=== PATIENT | male | born 1995 | race African-American/Black ===

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

== ENCOUNTER 2017-03-19 17:43 | Emergency (ER) | payer MEDICAID ==
[~2017-03-19 17:43] MED LIST changes: +KEPP1TAB PO; -KEPP500T6 PO
[2017-03-19 18:12] LABS: MEAN CORPUSCULAR HEMOGLOBIN 26.7 pg (27.0-33.0); MEAN CORPUSCULAR HGB CONC 30.8 g/dl (32.0-36.5); MEAN CORPUSCULAR VOLUME 86.7 fl (80.0-96.0); RED CELL DISTRIBUTION WIDTH 17.2 % (11.5-14.5); WHITE BLOOD COUNT 19.3 K/mm3 (4.0-10.0)
[2017-03-19 18:16] LABS: ABG BASE EXCESS -26.5 (-2.0-2.0); ABG HCO3 6.7 MEQ/L (22.0-26.0); ABG PARTIAL PRESSURE O2 355.5 mmHg (75.0-100.0); ABG STANDARD HCO3 7.1 MEQ/L (22.0-26.0); ABG TOTAL CO2 7.8 MEQ/L (22.0-29.0); ABG pH (ARTERIAL) 6.874 UNITS (7.350-7.450)
[2017-03-19 18:43] LABS: METHADONE URINE NEGATIVE (NEGATIVE)
[2017-03-19 18:43] LABS: ALBUMIN 4.1 GM/DL (3.2-5.2); ALBUMIN/GLOBULIN RATIO 1.03 (1.00-1.93); ALKALINE PHOSPHATASE 80 U/L (45-117); ALT/SGPT 59 U/L (12-78); ANION GAP 33 MEQ/L (8-16); AST/SGOT 29 U/L (15-37); BILIRUBIN,TOTAL 0.4 MG/DL (0.2-1.0); BLOOD UREA NITROGEN 7 MG/DL (7-18); CALCIUM LEVEL 10.6 MG/DL (8.5-10.1); CARBON DIOXIDE LEVEL 6 MEQ/L (21-32); CHLORIDE LEVEL 99 MEQ/L (98-107); CREATININE FOR GFR 1.64 MG/DL (0.70-1.30); GLUCOSE, FASTING 232 MG/DL (70-105); POTASSIUM SERUM 4.4 MEQ/L (3.5-5.1); SODIUM LEVEL 138 MEQ/L (136-145); TOTAL PROTEIN 8.1 GM/DL (6.4-8.2)
--- NOTE | 2017-03-19 19:00 | REPUSA ---
CT of the head Clinical history: altered mental status. Comparison: 10/22/2016. Technique: Multiple axial CT images were obtained through the head without administration of contrast . Findings: The ventricles and sulci are symmetric bilaterally. There is no evidence of acute hemorrhag e or infarct. There is no midline shift, mass effect, or extra-axial fluid collection. The osseous st ructures are unremarkable. The visualized paranasal sinuses and mastoid air cells are clear. Impression: Negative study.
[2017-03-19] MEDS ORDERED: SODIUM CHLORIDE 0.9% 1000 ML IV ONE (19:15)
[2017-03-19] MEDS ORDERED: SODIUM BICARBONATE 8.4% INJ 50 ML SYRINGE IV ONE (19:30)
[2017-03-19] MEDS ORDERED: FOMEPIZOLE IV ONE (20:15)
[2017-03-19] MEDS ORDERED: NS IV ONE (20:15)
[2017-03-19 20:55] LABS: CALCIUM LEVEL 8.9 MG/DL (8.5-10.1); PHOSPHORUS LEVEL 2.2 MG/DL (2.5-4.9)
[2017-03-19] MEDS ORDERED: POTASSIUM PHOSPHATE INJ 15 MMOL in D5W 250 ML IV ONE (21:45)
[2017-03-19 22:09] LABS: ABG BASE EXCESS 1.3 (-2.0-2.0); ABG PARTIAL PRESSURE CO2 41.7 mmHg (35.0-45.0); ABG PARTIAL PRESSURE O2 46.1 mmHg (75.0-100.0); ABG STANDARD HCO3 25.1 MEQ/L (22.0-26.0); ABG TOTAL CO2 27.3 MEQ/L (22.0-29.0); ABG pH (ARTERIAL) 7.413 UNITS (7.350-7.450)
[2017-03-19] MEDS ORDERED: levETIRAcetam 250MG TABLET (KEPPRA) PO ONE (22:45)
[2017-03-19 23:17] LABS: ANION GAP 9 MEQ/L (8-16); BLOOD UREA NITROGEN 6 MG/DL (7-18); CALCIUM LEVEL 8.5 MG/DL (8.5-10.1); CARBON DIOXIDE LEVEL 28 MEQ/L (21-32); CHLORIDE LEVEL 103 MEQ/L (98-107); CREATININE FOR GFR 0.87 MG/DL (0.70-1.30); GLUCOSE, FASTING 103 MG/DL (70-105); PHOSPHORUS LEVEL 2.8 MG/DL (2.5-4.9); POTASSIUM SERUM 3.5 MEQ/L (3.5-5.1); SODIUM LEVEL 140 MEQ/L (136-145)
[2017-03-19] MEDS ORDERED: LEVE500UDC PO (23:54)
[2017-03-20 00:15] VITALS: BP 118/72
--- NOTE | 2017-03-20 07:27 | ECGEPIP ---
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
--- NOTE | 2017-03-20 07:28 | ECGEPIP ---
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
--- NOTE | 2017-03-20 08:23 | REP ---
AP PORTABLE SEATED CHEST: 03/19/2017 COMPARISON: PA chest 08/27/2016, 03/27/2016. CLINICAL HISTORY: Altered mental status. FINDINGS: Lungs are well inflated without infiltrate, effusion, atelectasis or mass. Heart, mediastinal and hilar contours are normal. Airway intact. Bones unremarkable. No free air. IMPRESSION: 1. Negative portable chest. Signed by Ba Jain MD 03/20/2017 10:38 A
== END 2017-03-20 00:26 | disposition left against medical advice (07) ==
LOC: EDBD 17:43 → M ED 18:42
DX: R41.82 Altered mental status, unspecified (principal); D72.829 Elevated white blood cell count, unspecified; F19.10 Other psychoactive substance abuse, uncomplicated; R00.1 Bradycardia, unspecified; R25.8 Other abnormal involuntary movements; R11.10 Vomiting, unspecified; F17.200 Nicotine dependence, unspecified, uncomplicated; Z79.899 Other long term (current) drug therapy
CPT/HCPCS: 36415; 36600; 70450; 71010; 80053; 80306; 81001; 82010; 82803; 83605; 83930; 83935; 84100; 85027; 93005; 96374; 99285; G0480; J1451

== ENCOUNTER 2017-04-18 08:53 | Emergency (ER) | payer MEDICAID ==
[~2017-04-18 08:53] MED LIST changes: +LEVE500UDC PO
[2017-04-18] MEDS ORDERED: NS 1,000 ML IV ONE (09:15)
--- NOTE | 2017-04-18 09:38 | REP ---
CT of the brain without IV contrast, emergency room request: There is significant motion artifact resulting in significant image degradation. The study is uninterpretable. Signed by Owen Lang MD 04/18/2017 09:29 A
[2017-04-18 09:42] LABS: ABG BASE EXCESS -0.9 (-2.0-2.0); ABG HCO3 22.7 MEQ/L (22.0-26.0); ABG PARTIAL PRESSURE CO2 34.7 mmHg (35.0-45.0); ABG PARTIAL PRESSURE O2 112.6 mmHg (75.0-100.0); ABG STANDARD HCO3 23.8 MEQ/L (22.0-26.0); ABG TOTAL CO2 23.7 MEQ/L (22.0-29.0); ABG pH (ARTERIAL) 7.433 UNITS (7.350-7.450)
[2017-04-18 09:43] LABS: VENOUS BASE EXCESS -2.3 (-2.0-2.0); VENOUS O2 SATURATION 53.9 % (60.0-80.0); VENOUS PARTIAL PRESSURE CO2 45.6 mmHg (38.0-50.0); VENOUS PARTIAL PRESSURE O2 30.8 mmHg (30.0-50.0); VENOUS STANDARD HCO3 21.4 MEQ/L; VENOUS TOTAL CO2 25.2 MEQ/L (24.0-28.0)
[2017-04-18 09:50] LABS: BASO % 0.4 % (0.0-1.0); EOS # 0.1 K/mm3 (0.0-0.50); EOS % 1.2 % (0.0-3.0); LARGE UNSTAINED CELL # 0.1 K/mm3 (0.0-0.4); LARGE UNSTAINED CELL % 1.6 % (0.0-4.0); LYMPH # 1.5 K/mm3 (1.5-6.5); LYMPH % 16.9 % (24.0-44.0); MEAN CORPUSCULAR HEMOGLOBIN 27.5 pg (27.0-33.0); MEAN CORPUSCULAR HGB CONC 33.9 g/dl (32.0-36.5); MONO # 0.3 K/mm3 (0.0-0.8); MONO % 3.8 % (0.0-5.0); NEUTROPHILS # 6.7 K/mm3 (1.8-7.7); PLATELET COUNT, AUTOMATED 343 k/mm3 (150-450); RED CELL DISTRIBUTION WIDTH 16.2 % (11.5-14.5); WHITE BLOOD COUNT 8.8 K/mm3 (4.0-10.0)
[2017-04-18 10:11] LABS: METHADONE URINE NEGATIVE (NEGATIVE)
[2017-04-18 10:17] LABS: ALBUMIN 3.8 GM/DL (3.2-5.2); ALBUMIN/GLOBULIN RATIO 1.12 (1.00-1.93); ALKALINE PHOSPHATASE 58 U/L (45-117); ALT/SGPT 57 U/L (12-78); ANION GAP 11 MEQ/L (8-16); AST/SGOT 39 U/L (15-37); BILIRUBIN,DIRECT 0.1 MG/DL (0.0-0.2); BILIRUBIN,TOTAL 0.3 MG/DL (0.2-1.0); BLOOD UREA NITROGEN 8 MG/DL (7-18); CALCIUM LEVEL 10.2 MG/DL (8.5-10.1); CARBON DIOXIDE LEVEL 26 MEQ/L (21-32); CHLORIDE LEVEL 98 MEQ/L (98-107); CREATININE FOR GFR 1.27 MG/DL (0.70-1.30); GLUCOSE, FASTING 114 MG/DL (70-105); POTASSIUM SERUM 4.6 MEQ/L (3.5-5.1); SODIUM LEVEL 135 MEQ/L (136-145); TOTAL PROTEIN 7.2 GM/DL (6.4-8.2)
[2017-04-18] MEDS ORDERED: LORazepam 2 MG/ML VIAL (J2060) As Ordered ONE (11:22)
[2017-04-18] MEDS ORDERED: LORazepam 2 MG/ML VIAL (J2060) IV STA (11:23)
[2017-04-18] MEDS ORDERED: VALPROATE SOD INJ 500 MG in D5W 50 ML IV ONE (11:30)
[2017-04-18] MEDS ORDERED: ACETAMINOPHEN TAB 650MG DOSE (2X325MG) PO ONE (13:00)
[2017-04-18] MEDS ORDERED: DEPA1TAB3 PO ×2 (15:48→19:28)
[2017-04-18 18:27] VITALS: BP 128/72
[2017-04-18] MEDS ORDERED: AMMONIA AROMATIC INHALANT (FLOOR STOCK) As Ordered ONE (19:51)
--- NOTE | 2017-04-19 08:54 | ECGEPIP ---
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
[2017-04-23 00:07] LABS: MDPV Negative (NEGATIVE); MEPHEDRONE Negative (NEGATIVE)
== END 2017-04-18 19:58 | disposition home or self-care (01) ==
LOC: M ED 08:53
DX: R56.9 Unspecified convulsions (principal); F15.10 Other stimulant abuse, uncomplicated; R00.1 Bradycardia, unspecified; B19.20 Unspecified viral hepatitis C without hepatic coma; Z79.899 Other long term (current) drug therapy
CPT/HCPCS: 36600; 70450; 80048; 80076; 80164; 80307; 82550; 82803; 83930; 84443; 85025; 93005; 93041; 96361; 96374; 96375; 99285; G0480; J2060

== ENCOUNTER 2017-05-21 05:51 | Emergency (ER) | payer MEDICAID, OTHER ==
[2017-05-21] MEDS ORDERED: levETIRAcetam INJection 1,500 MG in D5W 100 ML IV ONE (06:15)
[2017-05-21 06:55] LABS: ANION GAP 15 MEQ/L (8-16); BLOOD UREA NITROGEN 12 MG/DL (7-18); CALCIUM LEVEL 9.2 MG/DL (8.5-10.1); CARBON DIOXIDE LEVEL 19 MEQ/L (21-32); CHLORIDE LEVEL 106 MEQ/L (98-107); CREATININE FOR GFR 1.21 MG/DL (0.70-1.30); GLUCOSE, FASTING 94 MG/DL (70-105); POTASSIUM SERUM 4.7 MEQ/L (3.5-5.1); SODIUM LEVEL 140 MEQ/L (136-145)
[2017-05-21] MEDS ORDERED: DIVALPROEX 500 MG TAB PO ONE (07:15)
[2017-05-21] MEDS ORDERED: ACETAMINOPHEN TAB 650MG DOSE (2X325MG) PO ONE (07:30)
[2017-05-21] MEDS ORDERED: NS 1,000 ML IV ONE ×2 (07:30)
[2017-05-21 07:52] LABS: BASO # 0.1 K/mm3 (0.0-0.2); BASO % 0.9 % (0.0-1.0); EOS # 0.2 K/mm3 (0.0-0.50); EOS % 2.1 % (0.0-3.0); LARGE UNSTAINED CELL # 0.4 K/mm3 (0.0-0.4); LARGE UNSTAINED CELL % 4.8 % (0.0-4.0); LYMPH # 5.3 K/mm3 (1.5-6.5); LYMPH % 52.8 % (24.0-44.0); MEAN CORPUSCULAR VOLUME 84.9 fl (80.0-96.0); MONO # 0.8 K/mm3 (0.0-0.8); MONO % 8.4 % (0.0-5.0); NEUTROPHILS # 2.8 K/mm3 (1.8-7.7); NEUTROPHILS % 31.1 % (36.0-66.0); PLATELET COUNT, AUTOMATED 232 k/mm3 (150-450); RED CELL DISTRIBUTION WIDTH 16.2 % (11.5-14.5); WHITE BLOOD COUNT 9.1 K/mm3 (4.0-10.0)
[2017-05-21 10:24] LABS: BASO % 0.6 % (0.0-1.0); EOS # 0.1 K/mm3 (0.0-0.50); EOS % 1.3 % (0.0-3.0); LARGE UNSTAINED CELL # 0.2 K/mm3 (0.0-0.4); LARGE UNSTAINED CELL % 2.6 % (0.0-4.0); LYMPH % 22.5 % (24.0-44.0); MEAN CORPUSCULAR HEMOGLOBIN 27.8 pg (27.0-33.0); MEAN CORPUSCULAR HGB CONC 33.6 g/dl (32.0-36.5); MEAN CORPUSCULAR VOLUME 82.5 fl (80.0-96.0); MONO # 0.4 K/mm3 (0.0-0.8); MONO % 5.1 % (0.0-5.0); NEUTROPHILS # 5.5 K/mm3 (1.8-7.7); NEUTROPHILS % 67.9 % (36.0-66.0); PLATELET COUNT, AUTOMATED 209 k/mm3 (150-450); RED CELL DISTRIBUTION WIDTH 16.4 % (11.5-14.5); WHITE BLOOD COUNT 8.1 K/mm3 (4.0-10.0)
[2017-05-21 10:38] VITALS: BP 111/55
[2017-05-21] MEDS ORDERED: DEPA1TAB3 PO (10:45)
== END 2017-05-21 10:51 | disposition home or self-care (01) ==
LOC: EDBD 05:51 → M ED 05:51
DX: G40.909 Epilepsy, unspecified, not intractable, without status epilepticus (principal); Z91.14 Patient's other noncompliance with medication regimen; F17.200 Nicotine dependence, unspecified, uncomplicated; Z79.899 Other long term (current) drug therapy
CPT/HCPCS: 36415; 80048; 80164; 83605; 85025; 96361; 96374; 99285; J1953

== ENCOUNTER 2017-06-18 20:46 | Emergency (ER) | payer MEDICAID, OTHER ==
[~2017-06-18] VITALS: Ht 182.9 cm; Wt 68.2 kg
[2017-06-18] MEDS ORDERED: VALPROATE SOD INJ 1,000 MG in D5W 50 ML IV ONE (21:15)
[2017-06-18] MEDS ORDERED: NS 1,000 ML IV ONE (21:15)
[2017-06-18] MEDS ORDERED: levETIRAcetam INJection 500 MG in D5W MINI-BAG PLUS 100 ML IV ONE (21:15)
[2017-06-18 21:56] LABS: BASO % 0.4 % (0.0-1.0); EOS # 0.1 K/mm3 (0.0-0.50); EOS % 1.3 % (0.0-3.0); LARGE UNSTAINED CELL # 0.3 K/mm3 (0.0-0.4); LARGE UNSTAINED CELL % 3.2 % (0.0-4.0); LYMPH # 3.4 K/mm3 (1.5-6.5); MEAN CORPUSCULAR HEMOGLOBIN 29.1 pg (27.0-33.0); MEAN CORPUSCULAR HGB CONC 36.4 g/dl (32.0-36.5); MEAN CORPUSCULAR VOLUME 80.1 fl (80.0-96.0); MONO # 0.5 K/mm3 (0.0-0.8); MONO % 6.2 % (0.0-5.0); NEUTROPHILS # 4.3 K/mm3 (1.8-7.7); NEUTROPHILS % 49.9 % (36.0-66.0); PLATELET COUNT, AUTOMATED 338 k/mm3 (150-450); RED CELL DISTRIBUTION WIDTH 15.6 % (11.5-14.5); WHITE BLOOD COUNT 8.6 K/mm3 (4.0-10.0)
[2017-06-18 22:12] LABS: METHADONE URINE NEGATIVE (NEGATIVE)
[2017-06-18 22:23] LABS: ALBUMIN 4.3 GM/DL (3.2-5.2); ALBUMIN/GLOBULIN RATIO 1.26 (1.00-1.93); ALKALINE PHOSPHATASE 61 U/L (45-117); ALT/SGPT 65 U/L (12-78); ANION GAP 8 MEQ/L (8-16); AST/SGOT 37 U/L (15-37); BILIRUBIN,DIRECT 0.3 MG/DL (0.0-0.2); BILIRUBIN,TOTAL 0.8 MG/DL (0.2-1.0); BLOOD UREA NITROGEN 11 MG/DL (7-18); CALCIUM LEVEL 9.7 MG/DL (8.5-10.1); CARBON DIOXIDE LEVEL 26 MEQ/L (21-32); CHLORIDE LEVEL 105 MEQ/L (98-107); CREATININE FOR GFR 1.38 MG/DL (0.70-1.30); GLUCOSE, FASTING 83 MG/DL (70-105); SODIUM LEVEL 139 MEQ/L (136-145); TOTAL PROTEIN 7.7 GM/DL (6.4-8.2)
[2017-06-18] MEDS ORDERED: ACETAMINOPHEN 325 MG TAB PO ONE (22:30)
[2017-06-18 22:31] VITALS: BP 150/90
[2017-06-18] MEDS ORDERED: DEPA1TAB3 PO (22:40)
[2017-06-19] MEDS ORDERED: DEPA1TAB3 PO (16:05)
== END 2017-06-18 22:53 | disposition home or self-care (01) ==
LOC: M ED 20:46 → EDBD 20:46 → M ED 22:53
DX: R56.9 Unspecified convulsions (principal); Z86.69 Personal history of other diseases of the nervous system and sense organs; B19.20 Unspecified viral hepatitis C without hepatic coma; F17.210 Nicotine dependence, cigarettes, uncomplicated; Z79.899 Other long term (current) drug therapy
CPT/HCPCS: 80048; 80076; 80164; 80307; 81001; 84443; 85025; 93041; 94760; 99285; G0480; J1953

== ENCOUNTER 2017-06-19 09:46 | Emergency (ER) | payer OTHER ==
[~2017-06-19] VITALS: Ht 185.4 cm; Wt 84.1 kg
[2017-06-19] MEDS ORDERED: NS 1,000 ML IV ONE ×3 (10:15→12:00)
[2017-06-19 10:50] LABS: BASO % 0.7 % (0.0-1.0); EOS # 0.1 K/mm3 (0.0-0.50); EOS % 1.7 % (0.0-3.0); LARGE UNSTAINED CELL # 0.2 K/mm3 (0.0-0.4); LYMPH # 2.7 K/mm3 (1.5-6.5); LYMPH % 49.5 % (24.0-44.0); MEAN CORPUSCULAR HGB CONC 36.1 g/dl (32.0-36.5); MEAN CORPUSCULAR VOLUME 80.5 fl (80.0-96.0); MONO # 0.4 K/mm3 (0.0-0.8); MONO % 7.1 % (0.0-5.0); NEUTROPHILS % 37.1 % (36.0-66.0); PLATELET COUNT, AUTOMATED 354 k/mm3 (150-450); RED CELL DISTRIBUTION WIDTH 15.8 % (11.5-14.5); WHITE BLOOD COUNT 5.5 K/mm3 (4.0-10.0)
[2017-06-19 11:14] LABS: METHADONE URINE NEGATIVE (NEGATIVE)
[2017-06-19 11:23] LABS: ALBUMIN/GLOBULIN RATIO 1.11 (1.00-1.93); ALKALINE PHOSPHATASE 54 U/L (45-117); ALT/SGPT 64 U/L (12-78); ANION GAP 9 MEQ/L (8-16); AST/SGOT 34 U/L (15-37); BILIRUBIN,DIRECT 0.4 MG/DL (0.0-0.2); BILIRUBIN,TOTAL 1.1 MG/DL (0.2-1.0); BLOOD UREA NITROGEN 8 MG/DL (7-18); CALCIUM LEVEL 8.8 MG/DL (8.5-10.1); CARBON DIOXIDE LEVEL 26 MEQ/L (21-32); CHLORIDE LEVEL 108 MEQ/L (98-107); CREATININE FOR GFR 1.25 MG/DL (0.70-1.30); GLUCOSE, FASTING 75 MG/DL (70-105); POTASSIUM SERUM 4.2 MEQ/L (3.5-5.1); SODIUM LEVEL 143 MEQ/L (136-145); TOTAL PROTEIN 7.6 GM/DL (6.4-8.2)
[2017-06-19 11:58] LABS: OSMOLALITY SERUM 294 MOSM/KG (275-295)
[2017-06-19] MEDS ORDERED: DEPA1TAB3 PO (16:05)
[2017-06-19 16:22] VITALS: BP 147/77
--- NOTE | 2017-06-20 06:14 | REP ---
CT BRAIN WITHOUT IV CONTRAST: CT brain is performed without IV contrast. Ventricles are normal in size and position with no midline shift or mass effect. Kapoor-white differentiation is well maintained. There is no acute hemorrhage or extra-axial fluid collection. Bone window examination is unremarkable. IMPRESSION: Negative noncontrast CT brain. Signed by Owen Kapoor MD 06/20/2017 05:22 P
--- NOTE | 2017-06-20 08:26 | ECGEPIP ---
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
== END 2017-06-19 16:42 | disposition home or self-care (01) ==
LOC: M ED 09:46
DX: R56.9 Unspecified convulsions (principal); Z86.69 Personal history of other diseases of the nervous system and sense organs; Z79.899 Other long term (current) drug therapy
CPT/HCPCS: 70450; 80048; 80076; 80164; 80307; 82140; 82550; 83605; 83930; 84443; 85025; 93005; 93041; 94760; 96360; 96361; 99285; G0480

== ENCOUNTER 2017-06-20 19:39 | Emergency (ER) | payer OTHER ==
[~2017-06-20] VITALS: Ht 185.4 cm; Wt 83.9 kg
[2017-06-20 21:14] VITALS: BP 130/60
[2017-06-20] MEDS ORDERED: ACETAMINOPHEN 325 MG TAB PO ONE (21:15)
== END 2017-06-20 21:23 | disposition home or self-care (01) ==
LOC: M ED 19:39
DX: R56.9 Unspecified convulsions (principal); Z86.69 Personal history of other diseases of the nervous system and sense organs; B19.20 Unspecified viral hepatitis C without hepatic coma; F99 Mental disorder, not otherwise specified; F17.210 Nicotine dependence, cigarettes, uncomplicated; Z79.899 Other long term (current) drug therapy

== ENCOUNTER 2017-11-19 10:50 | Emergency (ER) | payer BC, OTHER ==
[2017-11-19 11:33] LABS: BEDSIDE GLUCOSE 165 MG/DL (70-105)
[2017-11-19 11:35] LABS: VENOUS BASE EXCESS -19.9 (-2.0-2.0); VENOUS PARTIAL PRESSURE CO2 37.2 mmHg (38.0-50.0); VENOUS PARTIAL PRESSURE O2 138.4 mmHg (30.0-50.0); VENOUS PH 7.047 UNITS (7.330-7.430); VENOUS STANDARD HCO3 10.6 MEQ/L; VENOUS TOTAL CO2 11.1 MEQ/L (24.0-28.0)
[2017-11-19 11:42] LABS: HEMATOCRIT 45.3 % (42.0-52.0); MEAN CORPUSCULAR HEMOGLOBIN 29.4 pg (27.0-33.0); MEAN CORPUSCULAR HGB CONC 33.1 g/dl (32.0-36.5); MEAN CORPUSCULAR VOLUME 88.6 fl (80.0-96.0); PLATELET COUNT, AUTOMATED 280 10^3/uL (150-450); RED BLOOD COUNT 5.11 10^6/uL (4.30-6.10); RED CELL DISTRIBUTION WIDTH 13.4 % (11.5-14.5); WHITE BLOOD COUNT 16.5 10^3/uL (4.0-10.0)
[2017-11-19 12:07] LABS: AMPHETAMINES LEVEL URINE NEGATIVE (NEGATIVE); BARBITURATES URINE NEGATIVE (NEGATIVE); BENZODIAZEPINES URINE NEGATIVE (NEGATIVE); CANNABINOIDS URINE POSITIVE (NEGATIVE); COCAINE METABOLITE URINE NEGATIVE (NEGATIVE); METHADONE URINE NEGATIVE (NEGATIVE); OPIATES URINE NEGATIVE (NEGATIVE); PHENCYCLIDINE URINE NEGATIVE (NEGATIVE)
[2017-11-19 12:09] LABS: ADD MANUAL DIFFER YES; DIFF SLIDE NUMBER 125; POSITIVE DIFF POS FLAG; POSITIVE MORPH POS FLAG
[2017-11-19 12:12] LABS: ATYPICAL LYMPH 6 % (0-5); BANDS 1 % (< 11); EOSINOPHILS 1 % (0-5); LYMPHOCYTES 36 % (16-52); MONOCYTES 10 % (0-8); NEUTROPHILS 46 % (35-75)
[2017-11-19 12:14] LABS: ANION GAP 24 MEQ/L (8-16); BLOOD UREA NITROGEN 13 MG/DL (7-18); CALCIUM LEVEL 9.4 MG/DL (8.5-10.1); CARBON DIOXIDE LEVEL 11 MEQ/L (21-32); CHLORIDE LEVEL 104 MEQ/L (98-107); CREATININE FOR GFR 1.39 MG/DL (0.70-1.30); ETHYL ALCOHOL (ETHANOL) < 0.003 % (0.000-0.010); GLUCOSE, FASTING 178 MG/DL (70-100); MAGNESIUM LEVEL 3.1 MG/DL (1.8-2.4); SODIUM LEVEL 139 MEQ/L (136-145); VALPROIC ACID (DEPAKOTE) 94.6 UG/ML (50.0-100.0)
[2017-11-19 12:16] LABS: PLATELET ESTIMATE NORMAL (NORMAL)
[2017-11-19 12:17] LABS: ANISOCYTOSIS 1+
[2017-11-19 12:20] LABS: POTASSIUM SERUM 5.7 MEQ/L (3.5-5.1)
[2017-11-19] MEDS: NS 1,000 ML IV ×3 (12:25→15:28)
[2017-11-19 16:07] LABS: VENOUS HCO3 23.2 MEQ/L (23.0-27.0); VENOUS O2 SATURATION 94.7 % (60.0-80.0); VENOUS PARTIAL PRESSURE CO2 41.1 mmHg (38.0-50.0); VENOUS PARTIAL PRESSURE O2 73.4 mmHg (30.0-50.0); VENOUS PH 7.369 UNITS (7.330-7.430); VENOUS STANDARD HCO3 22.7 MEQ/L; VENOUS TOTAL CO2 24.4 MEQ/L (24.0-28.0)
[2017-11-19 16:56] LABS: ANION GAP 7 MEQ/L (8-16); BLOOD UREA NITROGEN 10 MG/DL (7-18); CARBON DIOXIDE LEVEL 27 MEQ/L (21-32); CHLORIDE LEVEL 109 MEQ/L (98-107); CREATININE FOR GFR 0.98 MG/DL (0.70-1.30); GLUCOSE, FASTING 89 MG/DL (70-100); POTASSIUM SERUM 4.5 MEQ/L (3.5-5.1); SODIUM LEVEL 143 MEQ/L (136-145)
== END 2017-11-19 17:24 | disposition home or self-care (01) ==
LOC: M ED 10:50
DX: R56.9 Unspecified convulsions (principal); G92 Toxic encephalopathy; N17.9 Acute kidney failure, unspecified; Z86.19 Personal history of other infectious and parasitic diseases; F19.10 Other psychoactive substance abuse, uncomplicated
CPT/HCPCS: 93005

== ENCOUNTER 2018-08-07 15:57 | Inpatient (IN) | payer OTHER, BC ==
[2018-08-07] MEDS: NS 1,000 ML IV ×2 (16:15→21:00)
[2018-08-07 16:32] LABS: KETONE, URINE AUTO RFX NEGATIVE (NEGATIVE); LEUKOCYTE ESTERASE UR AUTO RFX NEGATIVE (NEGATIVE); MUCUS, URINE RFX SMALL (NEGATIVE); NITRITE, URINE AUTO RFX NEGATIVE (NEGATIVE); RBC, URINE AUTO RFX 2 /HPF (0-3); SPECIFIC GRAVITY UR AUTO RFX 1.012 (1.002-1.035); SQUAM EPITHELIAL CELL UR AURFX 0 /HPF (0-6); WBC, URINE AUTO RFX 2 /HPF (0-3)
[2018-08-07 16:34] LABS: HEMATOCRIT 44.2 % (42.0-52.0); HEMOGLOBIN 15.4 g/dl (13.5-17.5); MEAN CORPUSCULAR HGB CONC 34.8 g/dl (32.0-36.5); MEAN CORPUSCULAR VOLUME 88.9 fl (80.0-96.0); PLATELET COUNT, AUTOMATED 315 10^3/uL (150-450); RED BLOOD COUNT 4.97 10^6/uL (4.30-6.10); WHITE BLOOD COUNT 12.6 10^3/uL (4.0-10.0)
[2018-08-07 16:37] LABS: ADD MANUAL DIFFER YES; DIFF SLIDE NUMBER 333; POSITIVE DIFF POS FLAG
[2018-08-07 16:50] LABS: AMPHETAMINES LEVEL URINE NEGATIVE (NEGATIVE); BARBITURATES URINE NEGATIVE (NEGATIVE); BENZODIAZEPINES URINE NEGATIVE (NEGATIVE); CANNABINOIDS URINE POSITIVE (NEGATIVE); COCAINE METABOLITE URINE NEGATIVE (NEGATIVE); METHADONE URINE NEGATIVE (NEGATIVE); OPIATES URINE NEGATIVE (NEGATIVE); PHENCYCLIDINE URINE NEGATIVE (NEGATIVE)
[2018-08-07 16:57] LABS: ATYPICAL LYMPH 28 % (0-5); EOSINOPHILS 2 % (0-5); LYMPHOCYTES 35 % (16-52); MONOCYTES 8 % (0-8); NEUTROPHILS 27 % (35-75)
[2018-08-07 16:58] LABS: PLATELET ESTIMATE NORMAL (NORMAL)
[2018-08-07 17:07] LABS: ACETAMINOPHEN LEVEL < 2.0 UG/ML (10.0-30.0); ALBUMIN/GLOBULIN RATIO 1.18 (1.00-1.93); ALKALINE PHOSPHATASE 66 U/L (45-117); ALT/SGPT 29 U/L (12-78); ANION GAP 19 MEQ/L (8-16); AST/SGOT 27 U/L (7-37); BILIRUBIN,DIRECT 0.1 MG/DL (0.0-0.2); BILIRUBIN,TOTAL 0.3 MG/DL (0.2-1.0); BLOOD UREA NITROGEN 8 MG/DL (7-18); CALCIUM LEVEL 9.6 MG/DL (8.5-10.1); CARBON DIOXIDE LEVEL 17 MEQ/L (21-32); CHLORIDE LEVEL 103 MEQ/L (98-107); CPK CREATINE PHOSPHOKINASE 264 U/L (39-308); CREATININE FOR GFR 1.52 MG/DL (0.70-1.30); ETHYL ALCOHOL (ETHANOL) < 0.003 % (0.000-0.010); GLOMERULAR FILTRATION RATE > 60.0 (>60); GLUCOSE, FASTING 96 MG/DL (70-100); POTASSIUM SERUM 4.2 MEQ/L (3.5-5.1); SALICYLATE LEVEL 3.6 MG/DL (5.0-30.0); SODIUM LEVEL 139 MEQ/L (136-145); TOTAL PROTEIN 7.4 GM/DL (6.4-8.2); VALPROIC ACID (DEPAKOTE) 12.6 UG/ML (50.0-100.0)
[2018-08-07] MEDS ORDERED: LORazepam 2 MG/ML VIAL (J2060) IV ×2 (18:33→20:00)
[2018-08-07] MEDS ORDERED: LORazepam 2 MG/ML VIAL (J2060) As Ordered (18:34)
[2018-08-07] MEDS: LORazepam 2 MG/ML VIAL (J2060) IV (18:51)
[2018-08-07] MEDS: VALPROATE SOD INJ 1,000 MG in D5W 50 ML IV (19:02)
[2018-08-08] MEDS: ACETAMINOPHEN TAB 650MG DOSE (2X325MG) PO ×2 (00:13→05:09)
[2018-08-08] MEDS: HEPARIN SOD (PORCINE) 5000 UNITS/ML VIAL SC ×2 (05:10→14:00)
[2018-08-08 05:16] LABS: HEMATOCRIT 42.1 % (42.0-52.0); HEMOGLOBIN 14.9 g/dl (13.5-17.5); MEAN CORPUSCULAR HEMOGLOBIN 30.6 pg (27.0-33.0); MEAN CORPUSCULAR HGB CONC 35.4 g/dl (32.0-36.5); MEAN CORPUSCULAR VOLUME 86.4 fl (80.0-96.0); PLATELET COUNT, AUTOMATED 242 10^3/uL (150-450); RED BLOOD COUNT 4.87 10^6/uL (4.30-6.10); RED CELL DISTRIBUTION WIDTH 12.6 % (11.5-14.5); WHITE BLOOD COUNT 9.3 10^3/uL (4.0-10.0)
[2018-08-08 05:36] LABS: ANION GAP 6 MEQ/L (8-16); BLOOD UREA NITROGEN 8 MG/DL (7-18); CALCIUM LEVEL 8.7 MG/DL (8.5-10.1); CARBON DIOXIDE LEVEL 29 MEQ/L (21-32); CHLORIDE LEVEL 107 MEQ/L (98-107); CREATININE FOR GFR 0.89 MG/DL (0.70-1.30); GLOMERULAR FILTRATION RATE > 60.0 (>60); GLUCOSE, FASTING 84 MG/DL (70-100); POTASSIUM SERUM 4.2 MEQ/L (3.5-5.1); SODIUM LEVEL 142 MEQ/L (136-145); VALPROIC ACID (DEPAKOTE) 51.4 UG/ML (50.0-100.0)
[2018-08-08] MEDS: NS 1,000 ML IV (06:38)
[2018-08-08 08:47] LABS: FREE T4 1.16 NG/DL (0.76-1.46)
[2018-08-08] MEDS: VALPROIC ACID 250 MG CAP PO (09:38)
[2018-08-08 11:19] LABS: INR 1.28; PROTHROMBIN TIME 16.2 SECONDS (12.1-14.4)
[2018-08-10 14:22] LABS: LEVETIRACETAM (KEPPRA) None Detected ug/mL (10.0-40.0)
== END 2018-08-08 14:37 | disposition left against medical advice (07) | DRG 53 ==
LOC: M ED 15:57 → M ED INP 19:50 → M ICU 20:38
DX: G40.909 Epilepsy, unspecified, not intractable, without status epilepticus (principal); N17.9 Acute kidney failure, unspecified; Z91.14 Patient's other noncompliance with medication regimen; E86.0 Dehydration; B19.20 Unspecified viral hepatitis C without hepatic coma; R50.9 Fever, unspecified; E02 Subclinical iodine-deficiency hypothyroidism; F12.10 Cannabis abuse, uncomplicated

== ENCOUNTER 2018-08-21 09:56 | Emergency (ER) | payer OTHER ==
[2018-08-21 12:09] LABS: BASO % 0.3 % (0.0-1.0); EOS # 0.1 10^3/uL (0.0-0.50); HEMATOCRIT 48.9 % (42.0-52.0); HEMOGLOBIN 17.4 g/dl (13.5-17.5); IMMATURE GRANULOCYTE % 0.2 % (0-3.0); LYMPH # 2.6 10^3/uL (1.5-6.5); LYMPH % 44.5 % (24.0-44.0); MEAN CORPUSCULAR HGB CONC 35.6 g/dl (32.0-36.5); MEAN CORPUSCULAR VOLUME 87.2 fl (80.0-96.0); MONO # 0.6 10^3/uL (0.0-0.8); MONO % 10.1 % (0.0-5.0); NEUTROPHILS # 2.5 10^3/uL (1.8-7.7); NEUTROPHILS % 43.9 % (36.0-66.0); PLATELET COUNT, AUTOMATED 150 10^3/uL (150-450); RED BLOOD COUNT 5.61 10^6/uL (4.30-6.10); RED CELL DISTRIBUTION WIDTH 12.9 % (11.5-14.5); WHITE BLOOD COUNT 5.8 10^3/uL (4.0-10.0)
[2018-08-21] MEDS: KETOROLAC 30 MG/ML VIAL (J1885) IV (12:15)
[2018-08-21] MEDS: NS 1,000 ML IV (12:15)
[2018-08-21] MEDS: GASTROGRAFIN SOLUTION 30ML PO ×2 (12:50→13:20)
[2018-08-21 12:54] LABS: ALBUMIN 4.1 GM/DL (3.2-5.2); ALBUMIN/GLOBULIN RATIO 1.03 (1.00-1.93); ALKALINE PHOSPHATASE 61 U/L (45-117); ALT/SGPT 30 U/L (12-78); ANION GAP 7 MEQ/L (8-16); AST/SGOT 31 U/L (7-37); BILIRUBIN,DIRECT 0.2 MG/DL (0.0-0.2); BILIRUBIN,TOTAL 0.7 MG/DL (0.2-1.0); BLOOD UREA NITROGEN 9 MG/DL (7-18); C REACTIVE PROTEIN QUANTITATIV < 0.30 MG/DL (0.00-0.30); CALCIUM LEVEL 9.7 MG/DL (8.5-10.1); CARBON DIOXIDE LEVEL 33 MEQ/L (21-32); CHLORIDE LEVEL 98 MEQ/L (98-107); CREATININE FOR GFR 0.91 MG/DL (0.70-1.30); GLOMERULAR FILTRATION RATE > 60.0 (>60); GLUCOSE, FASTING 91 MG/DL (70-100); LIPASE 45 U/L (73-393); POTASSIUM SERUM 3.5 MEQ/L (3.5-5.1); SODIUM LEVEL 138 MEQ/L (136-145); TOTAL PROTEIN 8.1 GM/DL (6.4-8.2)
[2018-08-21] MEDS ORDERED: ONDANSETRON 4 MG ORAL DISINTEGRATING TAB (Q0162 PER 1MG) As Ordered (13:10)
[2018-08-21] MEDS: ONDANSETRON 4 MG ORAL DISINTEGRATING TAB (Q0162 PER 1MG) PO ×2 (13:12→16:56)
[2018-08-21 13:57] LABS: APPEARANCE, URINE CLEAR (CLEAR); BACTERIA, URINE AUTO NEGATIVE (NEGATIVE); BILIRUBIN, URINE AUTO 1+ (NEGATIVE); BLOOD, URINE BLOOD NEGATIVE (NEGATIVE); COLOR, URINE AMBER (YELLOW); GLUCOSE, URINE (UA) AUTO NEGATIVE (NEGATIVE); KETONE, URINE AUTO 1+ mg/dL (NEGATIVE); LEUKOCYTE ESTERASE, URINE AUTO NEGATIVE (NEGATIVE); MUCUS, URINE SMALL (NEGATIVE); NITRITE, URINE AUTO NEGATIVE (NEGATIVE); PROTEIN, URINE AUTO 1+ mg/dL (NEGATIVE); RBC, URINE AUTO 1 /HPF (0-3); SPECIFIC GRAVITY URINE AUTO 1.024 (1.002-1.035); SQUAMOUS EPITHELIAL CELL UR AU 0 /HPF (0-6); WBC, URINE AUTO 3 /HPF (0-3)
[2018-08-21] MEDS ORDERED: ISOVUE-370 76% 100ML VIAL (Q9967) As Ordered (14:00)
[2018-08-21] MEDS: KETOROLAC 60 MG/2 ML VIAL (J1885) IM (14:33)
== END 2018-08-21 17:02 | disposition home or self-care (01) ==
LOC: M ED 09:56
DX: K52.9 Noninfective gastroenteritis and colitis, unspecified (principal); J45.909 Unspecified asthma, uncomplicated; B19.20 Unspecified viral hepatitis C without hepatic coma; R56.9 Unspecified convulsions; F31.9 Bipolar disorder, unspecified; F90.9 Attention-deficit hyperactivity disorder, unspecified type; F17.210 Nicotine dependence, cigarettes, uncomplicated
CPT/HCPCS: Q9963

== ENCOUNTER 2018-11-20 11:27 | Emergency (ER) | payer BC, OTHER ==
[~2018-11-20] VITALS: Ht 185.4 cm; Wt 79.5 kg
[~2018-11-20 11:27] MED LIST changes: +CIPR-249 PO; +DIVA500T94; +FLAG500T PO; +LEVE15SO PO; -LEVE500UDC PO; +VIMP100T PO; +VIMP200T; +VIMP50TA3 PO; +ZOFR4TAB14 PO
[2018-11-20] MEDS ORDERED: LORazepam 2 MG/ML VIAL (J2060) IV STA (11:39)
[2018-11-20] MEDS ORDERED: NS 1,000 ML IV ONE ×3 (11:45→16:00)
[2018-11-20 12:05] LABS: HEMATOCRIT 45.5 % (42.0-52.0); HEMOGLOBIN 15.5 g/dl (13.5-17.5); MEAN CORPUSCULAR HEMOGLOBIN 30.6 pg (27.0-33.0); MEAN CORPUSCULAR HGB CONC 34.1 g/dl (32.0-36.5); MEAN CORPUSCULAR VOLUME 89.9 fl (80.0-96.0); PLATELET COUNT, AUTOMATED 311 10^3/uL (150-450); RED BLOOD COUNT 5.06 10^6/uL (4.30-6.10); WHITE BLOOD COUNT 9.4 10^3/uL (4.0-10.0)
--- NOTE | 2018-11-20 12:11 | REP ---
CT Head without contrast HISTORY: Altered mental status COMPARISON: 08/07/2018 There is no intraparenchymal hemorrhage, acute infarct, mass or midline shift. The ventricular system is normal in appearance. There is no extra cerebral collection. There is no fracture. The visualized sinuses are clear. IMPRESSION: There is no intracranial lesion. Electronically Signed by Joss Pires MD 11/20/2018 12:02 P
[2018-11-20 12:16] LABS: LYMPHOCYTES 68 % (16-52); MONOCYTES 1 % (0-8); NEUTROPHILS 31 % (35-75); PLATELET ESTIMATE NORMAL (NORMAL)
--- NOTE | 2018-11-20 12:19 | REP ---
Clinical: Altered mental status . Comparison: 08/07/2018 . Findings: The mediastinum and cardiac silhouette are stable and within normal limits for portable technique. The lung leal are clear without acute consolidation, effusion, or pneumothorax. Skeletal structures are intact. Impression: No acute cardiopulmonary process appreciated. Electronically Signed by Sergei Martinez MD 11/20/2018 12:10 P
[2018-11-20 12:41] LABS: OSMOLALITY SERUM 298 MOSM/KG (275-295)
[2018-11-20 12:48] LABS: ACETAMINOPHEN LEVEL 14.3 UG/ML (10.0-30.0); ALBUMIN 3.9 GM/DL (3.2-5.2); ALT/SGPT 44 U/L (12-78); BILIRUBIN,DIRECT 0.3 MG/DL (0.0-0.2); BILIRUBIN,TOTAL 0.5 MG/DL (0.2-1.0); BLOOD UREA NITROGEN 5 MG/DL (7-18); CALCIUM LEVEL 9.8 MG/DL (8.5-10.1); CARBON DIOXIDE LEVEL 17 MEQ/L (21-32); CHLORIDE LEVEL 103 MEQ/L (98-107); CPK CREATINE PHOSPHOKINASE 292 U/L (39-308); CREATININE FOR GFR 1.33 MG/DL (0.70-1.30); GLOMERULAR FILTRATION RATE > 60.0 (>60); GLUCOSE, FASTING 103 MG/DL (70-100); MB/CK RELATIVE INDEX 0.51 (< OR =4); POTASSIUM SERUM 4.2 MEQ/L (3.5-5.1); SALICYLATE LEVEL 4.2 MG/DL (5.0-30.0); SODIUM LEVEL 141 MEQ/L (136-145); TOTAL PROTEIN 7.5 GM/DL (6.4-8.2); TROPONIN I < 0.02 NG/ML (< 0.10); VALPROIC ACID (DEPAKOTE) 90.7 UG/ML (50.0-100.0)
[2018-11-20 12:49] LABS: ETHYL ALCOHOL (ETHANOL) < 0.003 % (0.000-0.010)
[2018-11-20 14:01] LABS: AMPHETAMINES LEVEL URINE POSITIVE (NEGATIVE); BARBITURATES URINE NEGATIVE (NEGATIVE); BENZODIAZEPINES URINE NEGATIVE (NEGATIVE); CANNABINOIDS URINE POSITIVE (NEGATIVE); COCAINE METABOLITE URINE NEGATIVE (NEGATIVE); METHADONE URINE NEGATIVE (NEGATIVE); OPIATES URINE NEGATIVE (NEGATIVE); PHENCYCLIDINE URINE NEGATIVE (NEGATIVE)
[2018-11-20 16:00] VITALS: BP 151/69
[2018-11-20] MEDS ORDERED: LACOSAMIDE 50 MG TAB (VIMPAT) PO ONE (16:15)
[2018-11-20] MEDS ORDERED: DIVALPROEX 500 MG TAB PO ONE (16:15)
[2018-11-20] MEDS ORDERED: VIMP200T PO (16:22)
--- NOTE | 2018-11-21 07:34 | ECGEPIP ---
Stationary ECG Study 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
== END 2018-11-20 17:03 | disposition left against medical advice (07) ==
LOC: M ED 11:27 → EDBD 11:27 → M ED 17:03
DX: R56.9 Unspecified convulsions (principal); R74.0 Nonspecific elevation of levels of transaminase and lactic acid dehydrogenase [LDH]; E72.20 Disorder of urea cycle metabolism, unspecified; Z91.14 Patient's other noncompliance with medication regimen; B19.20 Unspecified viral hepatitis C without hepatic coma; F90.9 Attention-deficit hyperactivity disorder, unspecified type; J45.909 Unspecified asthma, uncomplicated; N17.8 Other acute kidney failure; D57.3 Sickle-cell trait; F17.200 Nicotine dependence, unspecified, uncomplicated; Z72.89 Other problems related to lifestyle; F19.90 Other psychoactive substance use, unspecified, uncomplicated; Z79.899 Other long term (current) drug therapy; Z86.61 Personal history of infections of the central nervous system
CPT/HCPCS: 70450; 71045; 80048; 80076; 80164; 80307; 82140; 82550; 82553; 83605; 83930; 84443; 85025; 93005; 93041; 94760; 96360; 96361; 99285; G0480

== ENCOUNTER 2018-12-31 05:00 | Emergency (ER) | payer OTHER ==
[~2018-12-31] VITALS: Ht 185.4 cm; Wt 84.1 kg
[~2018-12-31 05:00] MED LIST changes: +VIMP200T PO
[2018-12-31 05:10] VITALS: BP 117/55
[2018-12-31] MEDS ORDERED: LACOSAMIDE 50 MG TAB (VIMPAT) PO ONE (05:15)
[2018-12-31] MEDS ORDERED: VIMP200T PO (05:16)
[2018-12-31] MEDS ORDERED: DIVALPROEX 500 MG TAB PO ONE (05:30)
[2018-12-31] MEDS ORDERED: VALPROIC ACID 250 MG CAP PO SCH (21:00)
== END 2018-12-31 05:30 | disposition home or self-care (01) ==
LOC: M ED 05:00
DX: G40.909 Epilepsy, unspecified, not intractable, without status epilepticus (principal); Z91.19 Patient's noncompliance with other medical treatment and regimen; F31.9 Bipolar disorder, unspecified

== ENCOUNTER 2019-01-16 22:27 | Emergency (ER) | payer OTHER ==
[~2019-01-16] VITALS: Ht 185.4 cm; Wt 84.1 kg
[2019-01-16 22:27] VITALS: BP 136/63
== END 2019-01-16 23:35 | disposition home or self-care (01) ==
LOC: M ED 22:27
DX: Z76.5 Malingerer [conscious simulation] (principal); G40.909 Epilepsy, unspecified, not intractable, without status epilepticus; Z79.899 Other long term (current) drug therapy; F17.210 Nicotine dependence, cigarettes, uncomplicated

== ENCOUNTER 2019-03-23 04:05 | Emergency (ER) | payer OTHER ==
[~2019-03-23] VITALS: Ht 177.8 cm; Wt 82.6 kg
[2019-03-23 05:01] LABS: BASO % 0.6 % (0.0-1.0); EOS % 0.6 % (0.0-3.0); HEMATOCRIT 46.6 % (42.0-52.0); HEMOGLOBIN 16.3 g/dl (13.5-17.5); LYMPH # 3.8 10^3/uL (1.5-6.5); MEAN CORPUSCULAR HEMOGLOBIN 31.9 pg (27.0-33.0); MEAN CORPUSCULAR VOLUME 91.2 fl (80.0-96.0); MONO # 0.6 10^3/uL (0.0-0.8); MONO % 8.8 % (0.0-5.0); NEUTROPHILS # 2.5 10^3/uL (1.8-7.7); NEUTROPHILS % 35.6 % (36.0-66.0); PLATELET COUNT, AUTOMATED 121 10^3/uL (150-450); RED BLOOD COUNT 5.11 10^6/uL (4.30-6.10)
[2019-03-23 05:12] LABS: ALBUMIN 3.7 GM/DL (3.2-5.2); ALT/SGPT 60 U/L (12-78); BILIRUBIN,DIRECT 0.3 MG/DL (0.0-0.2); BILIRUBIN,TOTAL 0.6 MG/DL (0.2-1.0); BLOOD UREA NITROGEN 11 MG/DL (7-18); CALCIUM LEVEL 9.5 MG/DL (8.5-10.1); CARBON DIOXIDE LEVEL 19 MEQ/L (21-32); CHLORIDE LEVEL 106 MEQ/L (98-107); CREATININE FOR GFR 1.61 MG/DL (0.70-1.30); GLOMERULAR FILTRATION RATE > 60.0 (>60); GLUCOSE, FASTING 144 MG/DL (70-100); SODIUM LEVEL 140 MEQ/L (136-145); TOTAL PROTEIN 7.5 GM/DL (6.4-8.2)
[2019-03-23 05:24] LABS: ETHYL ALCOHOL (ETHANOL) < 0.003 % (0.000-0.010); VALPROIC ACID (DEPAKOTE) 13.8 UG/ML (50.0-100.0)
[2019-03-23] MEDS ORDERED: VALPROATE SOD INJ 500 MG in D5W 50 ML IV ONE (05:30)
[2019-03-23 06:23] LABS: AMPHETAMINES LEVEL URINE NEGATIVE (NEGATIVE); BARBITURATES URINE NEGATIVE (NEGATIVE); BENZODIAZEPINES URINE POSITIVE (NEGATIVE); CANNABINOIDS URINE POSITIVE (NEGATIVE); COCAINE METABOLITE URINE NEGATIVE (NEGATIVE); METHADONE URINE NEGATIVE (NEGATIVE); OPIATES URINE NEGATIVE (NEGATIVE); PHENCYCLIDINE URINE NEGATIVE (NEGATIVE)
--- NOTE | 2019-03-23 06:49 | REPVR ---
EXAM: CT Head Without Contrast EXAM DATE/TIME: 03/23/2019 4:52 AM CLINICAL HISTORY: 24 years old, male; Injury or trauma; Fall; Additional info: Seizure, known HX, eval for trauma TECHNIQUE: Imaging protocol: Axial computed tomography images of the head without contrast. Radiation optimization: All CT scans at this facility use at least one of these dose optimization techniques: automated exposure control; mA and/or kV adjustment per patient size (includes targeted exams where dose is matched to clinical indication); or iterative reconstruction. COMPARISON: CT Head without contrast 11/20/2018 11:46 AM FINDINGS: Brain: No acute posttraumatic brain injury. Symmetric caliber of the cortical sulci. Normal riddle-white matter differentiation. No acute cortical infarct, mass effect or intracranial hemorrhage. Ventricles: Normal configuration of the ventricles. Bones/joints: No acute calvarial injury. Sinuses: No sinus fluid. Mastoid air cells: No mastoid effusion. Soft tissues: No significant scalp hematoma. IMPRESSION: No acute posttraumatic brain injury. Electronically signed by: Juan F Mccullough On 03/23/2019 06:49:09 AM
[2019-03-23 07:23] VITALS: BP 116/59
== END 2019-03-23 07:27 | disposition home or self-care (01) ==
LOC: M ED 04:05
DX: G40.309 Generalized idiopathic epilepsy and epileptic syndromes, not intractable, without status epilepticus (principal); Z79.899 Other long term (current) drug therapy
CPT/HCPCS: 70450; 80048; 80076; 80164; 80307; 84443; 85025; 93041; 94760; 96365; 99284; G0480

== ENCOUNTER 2019-06-29 20:10 | Emergency (ER) | payer MEDICAID, OTHER ==
[~2019-06-29] VITALS: Ht 182.9 cm; Wt 84.1 kg
[2019-06-29] MEDS ORDERED: diphenhydrAMINE INJ 50MG/ML VIAL (J1200) IV STA (20:52)
[2019-06-29] MEDS ORDERED: ASPIRIN 81 MG CHEW TABLET PO ONE (21:00)
[2019-06-29] MEDS ORDERED: NS 1,000 ML IV ONE (21:00)
[2019-06-29 21:32] LABS: HEMATOCRIT 43.9 % (42.0-52.0); HEMOGLOBIN 15.9 g/dl (13.5-17.5); MEAN CORPUSCULAR HEMOGLOBIN 31.9 pg (27.0-33.0); MEAN CORPUSCULAR HGB CONC 36.2 g/dl (32.0-36.5); PLATELET COUNT, AUTOMATED 169 10^3/uL (150-450); RED BLOOD COUNT 4.99 10^6/uL (4.30-6.10); WHITE BLOOD COUNT 7.9 10^3/uL (4.0-10.0)
[2019-06-29 21:47] LABS: INR 1.12; PROTHROMBIN TIME 14.2 SECONDS (11.8-14.0)
[2019-06-29 22:01] LABS: ATYPICAL LYMPH 6 % (0-5); BASOPHILS 1 % (0-1); LYMPHOCYTES 69 % (16-44); MONOCYTES 7 % (0-5); NEUTROPHILS 17 % (28-66); PLATELET ESTIMATE NORMAL (NORMAL)
[2019-06-29 22:09] LABS: ALBUMIN 3.9 GM/DL (3.2-5.2); ALT/SGPT 33 U/L (12-78); BILIRUBIN,DIRECT 0.3 MG/DL (0.0-0.2); BILIRUBIN,TOTAL 0.9 MG/DL (0.2-1.0); BLOOD UREA NITROGEN 11 MG/DL (7-18); CALCIUM LEVEL 9.5 MG/DL (8.5-10.1); CARBON DIOXIDE LEVEL 28 MEQ/L (21-32); CHLORIDE LEVEL 104 MEQ/L (98-107); CK-MB VALUE MASS < 1.0 NG/ML (<3.6); CPK CREATINE PHOSPHOKINASE 223 U/L (39-308); CREATININE FOR GFR 1.29 MG/DL (0.70-1.30); GLOMERULAR FILTRATION RATE > 60.0 (>60); GLUCOSE, FASTING 102 MG/DL (70-100); LIPASE 30 U/L (73-393); MB/CK RELATIVE INDEX 0.45 (< OR =4); POTASSIUM SERUM 3.8 MEQ/L (3.5-5.1); SODIUM LEVEL 139 MEQ/L (136-145); TOTAL PROTEIN 7.6 GM/DL (6.4-8.2); TROPONIN I < 0.02 NG/ML (< 0.10)
[2019-06-29 23:25] VITALS: BP 141/69
--- NOTE | 2019-06-30 08:54 | REP ---
Chest AP and lateral views with the patient sitting: Comparison is 08/07/2018. The lung leal are clear. The cardiac size is normal. The carlos, mediastinum, and skeletal structures are unremarkable. Impression: Negative PA and lateral chest. There is no interval change. Electronically Signed by Owen Lang MD 06/30/2019 08:46 A
--- NOTE | 2019-07-01 08:06 | ECGEPIP ---
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
== END 2019-06-29 23:34 | disposition home or self-care (01) ==
LOC: M ED 20:10
DX: R00.2 Palpitations (principal); J45.909 Unspecified asthma, uncomplicated; R56.9 Unspecified convulsions; F17.200 Nicotine dependence, unspecified, uncomplicated; Z79.899 Other long term (current) drug therapy
CPT/HCPCS: 71046; 80048; 80076; 82550; 82553; 83690; 85025; 85610; 93005; 93041; 94760; 96374; 99285; J1200

== ENCOUNTER → 2019-07-02 | Outpatient (REF) | payer OTHER ==
[2019-07-02 14:25] LABS: APPEARANCE, URINE CLEAR (CLEAR); BACTERIA, URINE AUTO NEGATIVE (NEGATIVE); BILIRUBIN, URINE AUTO NEGATIVE (NEGATIVE); BLOOD, URINE BLOOD NEGATIVE (NEGATIVE); COLOR, URINE YELLOW (YELLOW); GLUCOSE, URINE (UA) AUTO NEGATIVE (NEGATIVE); KETONE, URINE AUTO TRACE mg/dL (NEGATIVE); LEUKOCYTE ESTERASE, URINE AUTO NEGATIVE (NEGATIVE); MUCUS, URINE SMALL (NEGATIVE); NITRITE, URINE AUTO NEGATIVE (NEGATIVE); PROTEIN, URINE AUTO NEGATIVE (NEGATIVE); RBC, URINE AUTO 0 /HPF (0-3); SPECIFIC GRAVITY URINE AUTO 1.017 (1.002-1.035); SQUAMOUS EPITHELIAL CELL UR AU 0 /HPF (0-6); UROBILINOGEN, URINE AUTO 0.2 mg/dL (0.0-2.0); WBC, URINE AUTO 3 /HPF (0-3)
== END ==
LOC: M LAB REF 12:14
PROVIDERS: ATTEND Family Medicine
DX: Z13.228 Encounter for screening for other metabolic disorders (principal)

== ENCOUNTER → 2019-07-06 | Outpatient (REF) | payer OTHER ==
[2019-07-06 15:22] LABS: HEMATOCRIT 45.2 % (42.0-52.0); HEMOGLOBIN 16.1 g/dl (13.5-17.5); MEAN CORPUSCULAR HEMOGLOBIN 31.6 pg (27.0-33.0); MEAN CORPUSCULAR HGB CONC 35.6 g/dl (32.0-36.5); MEAN CORPUSCULAR VOLUME 88.8 fl (80.0-96.0); PLATELET COUNT, AUTOMATED 147 10^3/uL (150-450); RED BLOOD COUNT 5.09 10^6/uL (4.30-6.10)
[2019-07-06 15:39] LABS: HEMOGLOBIN A1c 5.1 %
[2019-07-06 15:50] LABS: ATYPICAL LYMPH 4 % (0-5); EOSINOPHILS 2 % (0-3); LYMPHOCYTES 64 % (16-44); MONOCYTES 7 % (0-5); NEUTROPHILS 22 % (28-66); PLATELET ESTIMATE NORMAL (NORMAL)
[2019-07-06 18:02] LABS: ALBUMIN 3.8 GM/DL (3.2-5.2); ALT/SGPT 36 U/L (12-78); BILIRUBIN,TOTAL 0.5 MG/DL (0.2-1.0); BLOOD UREA NITROGEN 12 MG/DL (7-18); CALCIUM LEVEL 9.7 MG/DL (8.5-10.1); CARBON DIOXIDE LEVEL 28 MEQ/L (21-32); CHLORIDE LEVEL 104 MEQ/L (98-107); CHOLESTEROL LEVEL 143 MG/DL (<200); CHOLESTEROL RISK RATIO 1.787 (<5); CREATININE FOR GFR 0.99 MG/DL (0.70-1.30); FREE T4 1.28 NG/DL (0.76-1.46); GLOMERULAR FILTRATION RATE > 60.0 (>60); GLUCOSE, FASTING 74 MG/DL (70-100); HDL CHOLESTEROL 80 MG/DL (>40); HEPATITIS A ANTIBODY IGM NEGATIVE (NEGATIVE); HEPATITIS B CORE ANTIBODY IGM NEGATIVE (NEGATIVE); HEPATITIS B SURFACE ANTIGEN NEGATIVE (NEGATIVE); HIV 1&2 SCREEN CENTAUR NEGATIVE (NEGATIVE); LDL CHOLESTEROL 51 MG/DL (<100); NON-HDL-C 63 MG/DL; POTASSIUM SERUM 3.9 MEQ/L (3.5-5.1); SODIUM LEVEL 140 MEQ/L (136-145); TOTAL PROTEIN 7.5 GM/DL (6.4-8.2); TRIGLYCERIDES LEVEL 62 MG/DL (<150)
[2019-07-06 18:05] LABS: HEPATITIS C VIRUS ABY INDEX > 11.0 INDEX (<0.8)
[2019-07-10 08:41] LABS: HSV IgM TYPES 1&2 3.11 Ratio (0.00-0.90)
== END ==
LOC: M LAB REF 14:16
PROVIDERS: ATTEND Family Medicine
DX: Z11.3 Encounter for screening for infections with a predominantly sexual mode of transmission (principal); Z13.228 Encounter for screening for other metabolic disorders

== ENCOUNTER → 2019-07-30 | Outpatient (REF) | payer OTHER ==
[2019-08-01 10:03] LABS: HEPATITIS A ANTIBODY IGM NEGATIVE (NEGATIVE); HEPATITIS B SURFACE ANTIBODY NEGATIVE (POSITIVE); HEPATITIS B SURFACE ANTIGEN NEGATIVE (NEGATIVE); HIV 1&2 SCREEN CENTAUR NEGATIVE (NEGATIVE)
[2019-08-01 10:08] LABS: HEPATITIS C VIRUS ABY INDEX > 11.0 INDEX (<0.8)
== END ==
LOC: M LAB REF 18:32
PROVIDERS: ATTEND Family Medicine
DX: B18.2 Chronic viral hepatitis C (principal)

== ENCOUNTER 2020-03-24 17:31 | Emergency (ER) | payer OTHER ==
[~2020-03-24] VITALS: Ht 182.9 cm; Wt 84.9 kg
[~2020-03-24 17:31] MED LIST changes: -DIVA500T94; +DIVA500T94 PO; -VIMP200T
[2020-03-24] MEDS ORDERED: diphenhydrAMINE 50MG/ML VIAL (J1200) IV ONE (17:45)
[2020-03-24] MEDS ORDERED: METOCLOPRAMIDE INJ 10MG/2ML VIAL (J2765 PER 1) IV ONE (17:45)
[2020-03-24] MEDS ORDERED: TRAZ-252 PO (17:52)
[2020-03-24] MEDS ORDERED: NS 1,000 ML IV ONE (18:00)
--- NOTE | 2020-03-24 18:35 | REPVR ---
PROCEDURE INFORMATION: Exam: CT Head Without Contrast Exam date and time: 03/24/2020 6:23 PM Age: 25 years old Clinical indication: Pain; Headache not specified TECHNIQUE: Imaging protocol: Computed tomography of the head without contrast. Radiation optimization: All CT scans at this facility use at least one of these dose optimization techniques: automated exposure control; mA and/or kV adjustment per patient size (includes targeted exams where dose is matched to clinical indication); or iterative reconstruction. COMPARISON: CT Head without contrast 03/23/2019 5:03 AM FINDINGS: Brain: No acute intracranial hemorrhage, cerebral edema, or midline shift. Ventricles: No hydrocephalus. Bones/joints: No acute fracture. Sinuses: No acute sinusitis. Mastoid air cells: Visualized mastoid air cells are well aerated. Soft tissues: Unremarkable. IMPRESSION: No acute intracranial abnormality. Electronically signed by: Patrick Steen On 03/24/2020 18:35:24 PM
[2020-03-24] MEDS ORDERED: KETOROLAC 30 MG/ML 1ML VIAL IV ONE (18:45)
[2020-03-24 19:35] LABS: AMPHETAMINES LEVEL URINE NEGATIVE (NEGATIVE); BARBITURATES URINE NEGATIVE (NEGATIVE); BENZODIAZEPINES URINE NEGATIVE (NEGATIVE); CANNABINOIDS URINE NEGATIVE (NEGATIVE); COCAINE METABOLITE URINE NEGATIVE (NEGATIVE); METHADONE URINE NEGATIVE (NEGATIVE); OPIATES URINE NEGATIVE (NEGATIVE); PHENCYCLIDINE URINE NEGATIVE (NEGATIVE)
[2020-03-24 19:55] LABS: ALBUMIN 3.2 GM/DL (3.2-5.2); ALT/SGPT 31 U/L (12-78); BILIRUBIN,DIRECT 0.1 MG/DL (0.0-0.2); BILIRUBIN,TOTAL 0.2 MG/DL (0.2-1.0); BLOOD UREA NITROGEN 14 MG/DL (7-18); CALCIUM LEVEL 9.4 MG/DL (8.5-10.1); CARBON DIOXIDE LEVEL 32 MEQ/L (21-32); CHLORIDE LEVEL 101 MEQ/L (98-107); CREATININE FOR GFR 0.89 MG/DL (0.70-1.30); GLOMERULAR FILTRATION RATE > 60.0 (>60); GLUCOSE, FASTING 83 MG/DL (70-100); POTASSIUM SERUM 4.6 MEQ/L (3.5-5.1); SODIUM LEVEL 137 MEQ/L (136-145); TOTAL PROTEIN 7.4 GM/DL (6.4-8.2); VALPROIC ACID (DEPAKOTE) 114.5 UG/ML (50.0-100.0)
[2020-03-24 20:07] VITALS: BP 131/65
--- NOTE | 2020-03-25 16:18 | ECGEPIP ---
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
== END 2020-03-24 20:11 | disposition home or self-care (01) ==
LOC: M ED 17:31 → EDBD 17:31 → M ED 20:11
DX: G40.909 Epilepsy, unspecified, not intractable, without status epilepticus (principal); F17.200 Nicotine dependence, unspecified, uncomplicated; B19.20 Unspecified viral hepatitis C without hepatic coma; F19.11 Other psychoactive substance abuse, in remission; Z79.899 Other long term (current) drug therapy
CPT/HCPCS: 36415; 70450; 80048; 80076; 80164; 80307; 93005; 96361; 96374; 96375; 99284; J1200; J1885; J2765

== ENCOUNTER → 2021-02-12 | Outpatient (REF) | payer OTHER ==
[~2021-02-12] MED LIST changes: +TRAZ-252 PO
== END ==
LOC: M LAB REF 15:31
PROVIDERS: ATTEND Surgery
DX: U07.1 COVID-19 (principal)